=== PATIENT | male | born 1990 | race African-American/Black ===

== ENCOUNTER 2018-01-25 13:31 | Emergency (ER) | payer MEDICAID ==
[~2018-01-25] VITALS: Ht 175.3 cm; Wt 140.0 kg
[~2018-01-25 13:31] MED LIST: HYDR-3511 PO; [UNRECOGNIZED DRUG - OTHER]
[2018-01-25 13:47] VITALS: BP 139/106
== END 2018-01-25 18:30 | disposition left against medical advice (07) ==
LOC: ER 18:15
DX: R07.89 Other chest pain (principal); R05 Cough; Z53.21 Procedure and treatment not carried out due to patient leaving prior to being seen by health care provider
CPT/HCPCS: 93005